=== PATIENT | female | born 1975 | race Caucasian/White ===

== ENCOUNTER 2017-01-06 22:43 | Emergency (ER) | payer OTHER ==
[~2017-01-06] VITALS: Ht 167.6 cm; Wt 63.6 kg
[2017-01-06 22:54] VITALS: BP 102/73; PULSE 87; RESP 20; O2SAT 98
[2017-01-06] MEDS ORDERED: 0.9% Sodium Chloride 1,000 ML IV SCH (22:55)
[2017-01-06] MEDS ORDERED: MetoCLOpramide 5 mg/mL 2 mL Inj IVPUSH ONE (22:55)
[2017-01-06] MEDS ORDERED: Ondansetron 2 mg/mL 2 mL Inj IVPUSH ONE (22:55)
--- NOTE | 2017-01-06 23:23 | ED.REPORT ---
HPI-Abd Pain F 40 and Over Date of Service Jan 06, 2017 ED Provider: Donta Chase DO Pt is a 41 y.o. female with a hx of ulcerative colitis who presents to the ED c/ o LUQ pain onset today. She reports associated nausea, vomiting, diarrhea, and weakness. She denies a hx of abdominal surgery. Nursing Notes Stated Complaint: ABD PAIN, NAUSEA Chief Complaint: Female Abdominal Pain Nursing Notes Reviewed: Yes Allergies: Coded Allergies: hydrocodone bitartrate (Verified Allergy, Intermediate, 01/23/13) Sulfa (Sulfonamide Antibiotics) (Verified Allergy, Mild, 01/06/17) mesalamine (Verified Allergy, Unknown, 01/06/17) Uncoded Allergies: SULFA (Allergy, Unknown, 01/06/17) General Time Seen by MD: 22:48 Chief Complaint Abdominal pain Hx Obtained From: Patient Arrived By: Walk-in Sudden in Onset?: Yes Onset Occurred: 1 - 4 hours ago Symptom Duration: Since onset Location: : LUQ Quality: Painful Severity: Current: Severe Past Medical History Past Medical History Ulcerative colitis Past Surgical History Reports: Smoking History Former Smoker Ambulatory Status Independent Review of Systems Constitutional: Denies: Chills, Fever GI: Reports: Abdominal pain, Diarrhea, Nausea, Vomiting Complete sys rev & neg: except as marked. Physical Exam Vital Signs Vital Signs (First) Date Time Temp Pulse Resp B/P Pulse Ox O2 Delivery O2 Flow Rate FiO2 01/06/17 22:54 36.2 87 20 102/73 98 Room Air Initial VS: Reviewed Head / Eyes: Atraumatic, Normocephalic Extremities: Vascular intact, Neuro intact Skin: Warm, Dry, No cyanosis Neurologic: Alert, Oriented, Nonfocal Psychiatric: Mood/affect normal, Behavior normal, Normal thought content General/Constitutional: Awake, Alert, No acute distress, Well appearing, Well developed, Well hydrated, Well nourished, Not toxic appearing Appearance / Presentation: Positive: Uncomfortable Respiratory / Chest: Atraumatic, Breath sounds NL, Breath sounds = bilat, No respiratory distress Cardiovascular: Heart rate NL, Regular rhythm, Heart sounds NL, Peripheral circulation NL Abdomen: Atraumatic, Soft, No distention Tenderness/Guarding/Rebound: Positive: Tender diffuse Back: Atraumatic Interpretation & Diagnostics Lab Results Interpretation Result Diagram: 01/06/174 01/06/172303 Test 01/06/17 23:04 White Blood Count 10.6th/mm3 (3.8-10.1) Red Blood Count 4.36mil/mm3 (3.90-5.20) Hemoglobin 13.9g/dL (12.0-15.6) Hematocrit 41.6% (35.0-46.0) Mean Corpuscular Volume 95.4fL (81-100) Mean Corpuscular Hemoglobin 31.9pg (27.0-35.0) Mean Corpuscular Hemoglobin Concent 33.4% (32.0-37.0) Red Cell Distribution Width 13.5% (12.3-15.4) Platelet Count 265bil/L (150-400) Neutrophils (%) (Auto) 94.5% (40-74) Lymphocytes (%) (Auto) 4.4% (14-46) Monocytes (%) (Auto) 0.7% (4-12) Eosinophils (%) (Auto) 0.1% (0-5) Basophils (%) (Auto) 0.1% (0-3) Sodium Level 137mEq/L (134-144) Potassium Level 3.3mEq/L (3.5-5.2) Chloride Level 100mEq/L (97-108) Carbon Dioxide Level 21mmol/L (18-29) Blood Urea Nitrogen 18mg/dL (6-24) Creatinine 0.73mg/dL (0.57-1.00) Estimat Glomerular Filtration Rate 125mL/min (>59) Glucose Level 145mg/dL (60-99) Calcium Level 9.2mg/dL (8.5-10.1) Magnesium Level 2.0mg/dL (1.6-2.6) Total Bilirubin 0.3mg/dL (0.0-1.2) Aspartate Amino Transf (AST/SGOT) 18U/L (0-50) Alanine Aminotransferase (ALT/SGPT) 18U/L (0-32) Alkaline Phosphatase 81U/L (25-150) Total Protein 7.8g/dL (6.4-8.4) Albumin 4.5g/dL (3.4-5.0) Lipase 11U/L (13-60) Re-Eval/Medical Decision Med Decision/Clinical Course No signs of peritonitis. She developed diarrhea while being treated. No bloody stools. No signs of ulcerative colitis. Will treat symptomatically. Source of Hx: Old records Re-Evaluation/Progress : Time of Eval: 01:03 Patient Status: Condition improved Evaluation: Abdomen soft/non-tender Re-Evaluation/Progress Note: Pt rechecked. Pt is still experiencing intermittent abdominal pain. Pt is no longer vomiting, still has nausea. Discussed plan for discharge, pt understands and agrees with plan. Counseled Regarding: Diagnosis, Lab results, Need for follow-up, When/why to return to ED Discharge & Departure Shift Change Sign-Out Response to Therapy: Improved Primary Impression: Nausea vomiting and diarrhea Disposition: Home Discharge Condition All VS Reviewed: Yes Condition: Improved Patient Instructions: Acute Abdominal Pain (ED), Gastroenteritis (ED) Additional Instructions: Clear liquid diet for the next 24 hours. If the diarrhea becomes bloody then you need to have stool studies performed. Also consider that this could be a flare up of the ulcerative colitis. Either way set up a follow-up with her primary care physician or your flight attendant/inflight supervisor. He may take 1 Phenergan every 8 hours as needed for nausea and vomiting. He may take 1 Zofran every 8 hours as needed for nausea and vomiting. Take 1 Percocet every 6 hours as needed for the crampy abdominal pain. Do not drive or drink alcohol or consume significant for taking the Percocet. I recommended she stay home from work until Friday. Do not hesitate to return if any problems or any worsening symptoms. Referrals: OTHER,PHYSICIAN (PCP) Scribe Attestation Portions of this note were transcribed by Aurelio Anna. I, Dr. Chase personally performed the history, physical exam and medical decision-making; I reviewed and confirmed the accuracy of the information in the transcribed note. Signed by : Elfego Mendez, 01/07/17 and 0202. Donta Chase DO Jan 06, 2017 23:23 AURELIO ANNA Jan 06, 2017 23:45
[2017-01-06 23:46] LABS: BASOPHILS % (AUTO) 0.1 % (0-3); EOSINOPHILS % (AUTO) 0.1 % (0-5); MONOCYTES % (AUTO) 0.7 % (4-12); Mean Corpuscular Hemoglobin 31.9 pg (27.0-35.0); Mean Corpuscular Volume 95.4 fL (81-100); NEUTROPHILS % (AUTO) 94.5 % (40-74); Platelet Count 265 bil/L (150-400)
[2017-01-07] MEDS ORDERED: 0.9% Sodium Chloride 1,000 ML IV ONE ×2 (01:05)
[2017-01-07] MEDS ORDERED: _Ondansetron ODT 4 mg Tablet PO PRN (01:05)
[2017-01-07] MEDS ORDERED: Ondansetron 2 mg/mL 2 mL Inj IVPUSH PRN (01:05)
[2017-01-07] MEDS ORDERED: _oxyCODONE/APAP 5-325 mg Tablet PO PRN (01:05)
[2017-01-07 02:47] VITALS: BP 93/64; PULSE 89; RESP 16; O2SAT 98
== END 2017-01-07 02:48 | disposition home or self-care (01) ==
LOC: SED 22:43
DX: R10.12 Left upper quadrant pain (principal); R11.2 Nausea with vomiting, unspecified; R19.7 Diarrhea, unspecified; R53.1 Weakness; K51.90 Ulcerative colitis, unspecified, without complications; Z87.891 Personal history of nicotine dependence; Z88.2 Allergy status to sulfonamides; Z88.5 Allergy status to narcotic agent; Z88.8 Allergy status to other drugs, medicaments and biological substances
CPT/HCPCS: 36415; 80053; 83690; 83735; 85025; 96361; 96374; 96375; 96376; 99285; J2405; J2765; J7030